=== PATIENT | male | born 1980 | race Caucasian/White ===

== ENCOUNTER 2020-10-02 08:34 | Emergency (ER) | payer OTHER ==
[~2020-10-02] VITALS: Ht 175.3 cm; Wt 196.9 kg
--- NOTE | 2020-10-02 08:40 | NUR ---
Patient to bed 12. RN is evaluating the patient at bedside.
[2020-10-02 08:41] VITALS: BP 203/134
[2020-10-02] MEDS ORDERED: KETOROLAC 60 MG/2 ML VIAL IM ONE (08:55)
--- NOTE | 2020-10-02 09:05 | NUR ---
40 Y/O M BIB SELF FROM HOME, PT PRESENTS TO ED WITH C/O L SHOULDER PAIN CONSTANT WORSENS WITH MOVEMENT THAT STARTED 3 DAYS AGO AND WORSENED LAST NIGHT. PAIN RADIATES TO NECK AND BACK. DENIES SOB, COUGH, FEVER. PT TTCHED TO CARDIAC AND PULSE OXIMETER MONITOR. PMH: NONE MED: LAST DOSE OF TYLENOL WAS 2330 LAST NIGHT, 1000MG NKA
[2020-10-02] MEDS ORDERED: ACET-8386 PO (09:27)
[2020-10-02] MEDS ORDERED: IBUP-2213 PO (09:27)
[2020-10-02 09:38] VITALS: BP 163/100
--- NOTE | 2020-10-02 09:38 | NUR ---
Patient discharged with v/s stable. Written and verbal after care instructions given and explained. Patient alert, oriented and verbalized understanding of instructions. Ambulatory with steady gait. All questions addressed prior to discharge. ID band removed. Patient advised to follow up with PMD. Rx of Hydrocodone/Acetaminophen, Ibuprofen given. Patient educated on indication of medication including possible reaction and side effects. Opportunity to ask questions provided and answered.
== END 2020-10-02 09:38 | disposition home or self-care (01) ==
LOC: MED 08:34
DX: M54.6 Pain in thoracic spine (principal); M25.512 Pain in left shoulder; F12.10 Cannabis abuse, uncomplicated
CPT/HCPCS: 96372; 99283; J1885

== ENCOUNTER 2020-12-16 11:56 | Emergency (ER) | payer OTHER ==
[~2020-12-16] VITALS: Ht 175.3 cm; Wt 195.0 kg
[~2020-12-16 11:56] MED LIST: ACET-8386 PO; IBUP-2213 PO
[2020-12-16 12:11] VITALS: BP 167/100
[2020-12-16 13:45] LABS: BASOPHILS # (AUTO) 0.4 K/uL (0.00-0.22); BASOPHILS % (AUTO) 2.2 % (0.0-2.0); EOSINOPHILS # (AUTO) 0.4 K/uL (0-0.4); EOSINOPHILS % (AUTO) 2.3 % (0.0-4.0); HEMATOCRIT 43.1 % (36-52); HEMOGLOBIN 14.2 g/dL (12.0-18.0); LYMPHOCYTES % (AUTO) 12.2 % (20.5-51.1); MEAN CORPUSCULAR HEMOGLOBIN 27 pg (27-31); MEAN CORPUSCULAR HGB CONC 33 g/dL (33-37); MEAN CORPUSCULAR VOLUME 81.3 fL (80-94); MONOCYTES # (AUTO) 1.1 K/uL (0.8-1.0); MONOCYTES % (AUTO) 6.7 % (1.7-9.3); NEUTROPHILS # (AUTO) 12.8 K/uL (1.8-7.7); NEUTROPHILS % (AUTO) 76.6 % (42.2-75.2); PLATELET COUNT (AUTO) 304 K/uL (140-450)
[2020-12-16 14:03] LABS: WHITE BLOOD COUNT (AUTO) 16.7 K/uL (4.8-10.8)
--- NOTE | 2020-12-16 14:13 | NUR ---
PT AMB TO BED 10
[2020-12-16 14:15] LABS: ALBUMIN 3.9 g/dL (3.4-5.0); CARBON DIOXIDE 26.4 mmol/L (21-32); CREATININE 0.8 mg/dL (0.6-1.3); POTASSIUM 4.4 mmol/L (3.5-5.1); TOTAL BILIRUBIN 0.4 mg/dL (0.0-1.0)
--- NOTE | 2020-12-16 14:15 | NUR ---
Dr. Cardenas is evaluating the patient at bedside.
[2020-12-16] MEDS ORDERED: LIDOCAINE VISCOUS 2% 20 ML UDC PO ONE (14:20)
[2020-12-16] MEDS ORDERED: ALUMINUM HYD/MAG/SIMETHICONE 30 ML UDC PO ONE (14:20)
[2020-12-16] MEDS ORDERED: PANTOPRAZOLE 40 MG TABEC PO ONE (14:20)
[2020-12-16] MEDS ORDERED: HYDROcodone/APAP 10/325 MG 1 TAB TAB PO ONE (14:20)
--- NOTE | 2020-12-16 15:06 | NUR ---
PT C/O ABD PAIN 02/18 WITH NAUSEA VOMITTING AND DIARRHEA, PT STATED STARTED 5 DAYS AGO, AND HAS BEEN TAKING IBUPROFEN WITH NO RELIEF. PT STATED CAME IN PRIOR FOR NECK PAIN AND STILL HAVING MILD NECK PAIN CURRENTLY. HX: HERNIA.
[2020-12-16] MEDS ORDERED: ACET-8386 PO (15:55)
[2020-12-16] MEDS ORDERED: OMEP20EC11 PO (15:55)
[2020-12-16] MEDS ORDERED: ONDA-24 PO (15:55)
[2020-12-16 16:02] VITALS: BP 167/100
--- NOTE | 2020-12-16 16:02 | NUR ---
Patient discharged with v/s stable. Written and verbal after care instructions given and explained. Patient alert, oriented and verbalized understanding of instructions. Ambulatory with steady gait. All questions addressed prior to discharge. ID band removed. Patient advised to follow up with PMD. Rx of HYDROCODONE, OMEPRAZOLE, ONDANSETRON given. Patient educated on indication of medication including possible reaction and side effects. Opportunity to ask questions provided and answered.
== END 2020-12-16 16:02 | disposition home or self-care (01) ==
LOC: MED 11:56
DX: R10.9 Unspecified abdominal pain (principal); M54.2 Cervicalgia; R11.2 Nausea with vomiting, unspecified; I10 Essential (primary) hypertension; F12.90 Cannabis use, unspecified, uncomplicated
CPT/HCPCS: 36415; 80053; 81002; 83690; 85025; 99284